=== PATIENT | male | born 1950 | race Caucasian/White ===

== ENCOUNTER → 2023-11-14 09:31 | Outpatient (REF) | payer OTHER, SELFPAY ==
[2023-11-14 10:43] LABS: % Basophils 0.7 % (0-2); % Eosinophils 1.7 % (0-6); % Immature Granulocytes 0.4 % (0-0.5); % Lymphocytes 30.4 % (20.5-51.1); % Monocytes 11.9 % (1.7-9.3); % Neutrophils 54.9 % (42.2-75.2); Absolute Eosinophils 0.1 10^3/uL (0-0.7); Absolute Lymphocytes 1.6 10^3/uL (1.2-3.4); Absolute Monocytes 0.6 10^3/uL (0.1-0.6); Hematocrit 46.7 % (39.0-52.0); Hemoglobin 16.1 g/dL (13.0-18.0); Mean Corp Hgb Conc. 34.5 g/dL (33.0-37.0); Mean Corpuscular Hgb 32.1 pg (27.0-31.0); Mean Platelet Volume 10.2 fL (7.4-10.4); Nucleated Red Blood Cells % 0 % (-); Platelet Count 169 10^3/uL (130-400); Red Blood Cell Count 5.02 10^6/uL (4.70-6.10); Red Cell Dist. Width 13.2 % (11.5-14.5); White Blood Cell Count 5.4 10^3/uL (4.8-10.8)
[2023-11-14 11:03] LABS: ALT (SGPT) 47 U/L (0-50); AST (SGOT) 45 U/L (17-59); Albumin 4.1 g/dl (3.5-5.0); Alkaline Phosphatase 89 U/L (38-126); Blood Urea Nitrogen 18 mg/dl (9-20); Calcium 8.9 mg/dl (8.4-10.2); Carbon Dioxide 29 mmol/L (22-30); Chloride 106 mmol/L (98-107); Glucose 96 mg/dl (70-99); HDL Cholesterol 55 mg/dl; LDL Cholesterol, Calculated 96 mg/dl; Potassium 4.8 mmol/L (3.5-5.1); Sodium 139 mmol/L (135-145); Total Bilirubin 0.9 mg/dl (0.2-1.3); Total Cholesterol 170 mg/dl (50-199); Total Protein 6.8 g/dl (6.3-8.2); Triglyceride 97 mg/dl (10-149); Very Low Density Lipoprotein 19 mg/dl (0-30); eGFR > 60.00
[2023-11-14 11:37] LABS: PSA, Total - Screen 1.02 ng/ml (0.0-4.0)
[2023-11-14 13:28] LABS: Urine Albumin Negative (Neg - Trace); Urine Bilirubin Negative (Negative); Urine Color Yellow; Urine Glucose Negative (Negative); Urine Ketone Trace (Negative); Urine Leukocyte Negative (Negative); Urine Nitrite Negative (Negative); Urine Occult Blood Negative (Negative); Urine Specific Gravity 1.025 (<1.030); Urine Urobilinogen Negative (Neg - 1+)
[2023-11-14 13:32] LABS: Urine Character Clear (Clear)
[2023-11-14 13:35] LABS: Glycohemoglobin (HgbA1c) 5.9 % (4.0-5.6)
== END ==
LOC: REG 09:31
PROVIDERS: ATTENDING PHYSICIAN Family Medicine
DX: Z12.5 Encounter for screening for malignant neoplasm of prostate (principal); E78.5 Hyperlipidemia, unspecified; R53.83 Other fatigue; I10 Essential (primary) hypertension; R73.03 Prediabetes
CPT/HCPCS: 36415; 80053; 80061; 81003; 83036; 85025; G0103

== ENCOUNTER 2023-11-22 13:14 | Emergency (ER) | payer OTHER, SELFPAY ==
[2023-11-22 13:19] VITALS: BP 178/93
[2023-11-22 13:41] LABS: % Basophils 0.7 % (0-2); % Eosinophils 1.2 % (0-6); % Monocytes 9.9 % (1.7-9.3); % Neutrophils 61.2 % (42.2-75.2); Absolute Eosinophils 0.1 10^3/uL (0-0.7); Absolute Lymphocytes 1.6 10^3/uL (1.2-3.4); Absolute Monocytes 0.6 10^3/uL (0.1-0.6); Absolute Neutrophils 3.6 10^3/uL (1.4-6.5); Hematocrit 48.2 % (39.0-52.0); Hemoglobin 16.8 g/dL (13.0-18.0); Mean Corp Hgb Conc. 34.9 g/dL (33.0-37.0); Mean Corpuscular Hgb 32.6 pg (27.0-31.0); Mean Corpuscular Volume 93.4 fL (80.0-94.0); Mean Platelet Volume 9.8 fL (7.4-10.4); Nucleated Red Blood Cells % 0 % (-); Platelet Count 201 10^3/uL (130-400); Red Blood Cell Count 5.16 10^6/uL (4.70-6.10); Red Cell Dist. Width 13.3 % (11.5-14.5); White Blood Cell Count 5.9 10^3/uL (4.8-10.8)
--- NOTE | 2023-11-22 13:49 | ED.GENMED ---
History of Present Illness
General
Chief Complaint: Headache
Source: patient
Exam Limitations: none
Time Seen by Provider: 11/22/23 13:49
Nursing documentation reviewed up to this point in time: agreed with
Travel History
Have you had any contact with someone who has COVID-19?: No
Do you have any symptoms of coronavirus? Fever > 100 degrees, chills, cough, shortness of breath, sore throat, loss of taste or smell, muscle aches, or headache?: No
History of Present Illness
History of Present Illness:
73-year-old male with history of HLD, GERD, anxiety/depression presents for headache. States 2 weeks ago he had a headache that lasted every day for a week, then it went away for a week. For the past 4 days the headache has returned, is
generalized, comes and goes and is associated with 'weird noises in my brain' at times. He saw his PCP Dr. Moran 3 days ago, mention the headaches but he states the doctor 'said nothing.' 2 days ago he called Dr. Moran back, he was not in the
office so I spoke with the nurse who got back to him and referred him to neurology. He has a neurology appoint with Dr. Vaughan next Saturday (one week).
Patient states he has tried Tylenol, ibuprofen, [facility] migraine, aspirin with no relief. He states his headache right now is generalized and is 3/10. He denies N/V. He has been walking steadily. He denies change in vision.
He went to urgent care today and had a negative workup but they suggested he come here and get a head CT.
No history of trauma
Past History
Past History
ED Past Medical History: GERD, HTN and Hypercholesterolemia
ED Past Surgical History: None
Social History
Tobacco: Non-smoker
Alcohol: Occasional
Living: alone
Review of Systems
Review of Systems
Allergies reviewed?: Yes
All Other Systems: ROS reviewed and negative except as documented in HPI and ROS
Constitutional: Denies fever
Respiratory: Denies trouble breathing
Cardiac: Denies chest pain
ABD/GI: Denies abdominal pain, nausea or vomiting
Musculoskeletal: Denies edema or neck pain
Skin: Reports no symptoms
Neurological: Reports headache; Denies dizzy, weakness or numbness
Phy Exam
Physical Exam
Physical Exam:
GENERAL: No acute distress. A&Ox3.
CONSTITUTIONAL: Afebrile.
EYES: PERRL, conjunctivae normal
ENMT: moist mucus membranes, Pharynx nl, TMs normal
RESPIRATORY: Regular respirations, nonlabored, lungs clear.
CARDIOVASCULAR: Regular rate and rhythm, no murmurs, no rubs.
GI: Soft, nontender, normal BS
MUSCULOSKELETAL: Moves with ease. Well perfused.
SKIN: Warm, dry, pink
PSYCH: Normal mood and affect. Well kept, interactive and appropriate
NEUROLOGIC: Awake, alert and oriented. Speech clear no focal neurological deficits. Cranial nerves II through XII intact. Finger-nose intact, ambulates well with steady gait.
Course
Orders/Labs/Results
Orders:
Orders
11/22/23 13:25
CMP [Comprehensive Metabolic Panel] Urgent
Complete Blood Count/With Diff Urgent
11/22/23 14:11
CT Head W/o Iv Contrast Urgent
Comment:
Reason For Exam: headaches
Abnormal Lab Results
11/22/23
13:25
MCH 32.6 H pg
(27.0-31.0)
Monocytes % 9.9 H %
(1.7-9.3)
11/22/23 13:25
11/22/23 13:25
Vital Signs
Initial and Last Documented VS:
Initial Vital Signs
Temp Pulse Resp BP Pulse Ox
98.0 F 87 18 178/93 96
11/22/23 13:19 11/22/23 13:19 11/22/23 13:19 11/22/23 13:19 11/22/23 13:19
Last Documented Vital Signs
Temp Pulse Resp BP Pulse Ox
98.0 F 77 16 160/96 97
11/22/23 13:19 11/22/23 15:16 11/22/23 15:16 11/22/23 15:16 11/22/23 15:16
MDM/Problems Addressed
Differential Diagnosis Includes:
tension headache, ICH, brain tumor
MDM/Problems Addressed:
73-year-old male with history of HLD, GERD, anxiety/depression presents for headache. States 2 weeks ago he had a headache that lasted every day for a week, then it went away for a week. For the past 4 days the headache has returned, is
generalized, comes and goes and is associated with 'weird noises in my brain' at times. He saw his PCP Dr. Moran 3 days ago, mention the headaches but he states the doctor 'said nothing.' 2 days ago he called Dr. Moran back, he was not in the
office so I spoke with the nurse who got back to him and referred him to neurology. He has a neurology appoint with Dr. Vaughan next Saturday (one week).
Patient states he has tried Tylenol, ibuprofen, [facility] migraine, aspirin with no relief. He states his headache right now is generalized and is 3/10. He denies N/V. He has been walking steadily. He denies change in vision.
He went to urgent care today and had a negative workup but they suggested he come here and get a head CT.
No history of trauma
11/22/2023 1421 PM
CBC normal
CMP normal
11/22/2023 1543 PM
Well-appearing 73-year-old gentleman, neuro exam is normal
Blood pressure little high here but patient states every time he goes to his doctor is '120 over something'
Head CT unremarkable.
Pt reassured.
He will follow up with Dr. Vaughan as scheduled.
*Critical Care Note
Total Time (30-74mins, 75-104mins- exclusive of procedures): Not Applicable
ED Attending Note
-
Portions of this chart may have been created with voice recognition software.� Occasional wrong word or��sound alike� substitutions may have occurred due to the inherent limitations of voice recognition software.
Discharge Plan
Departure
Patient Disposition: Home (Routine Discharge)
Date of Disposition: 11/22/23
Time of Disposition: 15:29
Patient with high blood pressure during this ER visit?: Yes
Condition: Good
Discharge Problem:
Generalized headaches, Frequent headaches
Instructions: Headache, Adult (DC), BLOOD PRESSURE
Prescriptions:
No Action
atorvastatin 40 MG tablet
40 mg PO QPM
citalopram 10 MG tablet
10 mg PO QPM
omeprazole magnesium [Prilosec OTC] 20 MG tablet,delayed release (DR/EC)
20 mg PO QPM
sennosides [senna] 1 TABLET tablet
2 tab PO BID 0RF
acetaminophen 325 MG tablet
650 mg PO Q6H 0RF
magnesium hydroxide 30 ML suspension
30 ml PO HS Qty: 1 0RF
Rx Instructions:
take nightly until BM
aspirin 325 MG tablet,delayed release (DR/EC)
325 mg PO DAILY 0RF
docusate sodium 100 MG capsule
100 mg PO BID 0RF
mupirocin 1 APPLIC ointment
1 applic intranasal BID Qty: 1 0RF
oxycodone 5 MG tablet
5 mg PO Q6HPRN PRN (Reason: moderate-severe pain) Qty: 45 0RF
Rx Instructions:
1 tab moderate pain or 2 if severe
ongoing
tka
meloxicam 15 MG tablet
15 mg PO DAILY Qty: 14 0RF
tizanidine 2 MG tablet
2 mg PO Q6H PRN (Reason: thigh/muscle pain) Qty: 20 0RF
Rx Instructions:
take 1 tab, if no relief after 1hour, may take additional tab
Referrals:
Viraj Moran MD [Family Provider] -
Activity Restrictions/Additional Instructions:
As we discussed, your blood work is normal, your head CAT scan shows nothing worrisome. Keep your appoint with Dr. Vaughan in one week.
Your blood pressure is a little high but likely not high enough to cause your headaches.
Follow up with Neurology Dr. Vaughan:
[address]
[place]
[id number]

Interventions
Interventions:
*Risk Screen - Suicide Last Done: 11/22/23 13:19
*General Assessment Last Done: 11/22/23 13:19
*Neglect/Abuse Screening Last Done: 11/22/23 13:19
*ED COVID-19 Vaccine History Last Done: 11/22/23 13:19
ED- Neurological Assessment Last Done: 11/22/23 13:41
[2023-11-22 14:00] LABS: ALT (SGPT) 40 U/L (0-50); AST (SGOT) 44 U/L (17-59); Albumin 4.5 g/dl (3.5-5.0); Alkaline Phosphatase 99 U/L (38-126); Blood Urea Nitrogen 16 mg/dl (9-20); Calcium 9.4 mg/dl (8.4-10.2); Carbon Dioxide 25 mmol/L (22-30); Chloride 106 mmol/L (98-107); Glucose 91 mg/dl (70-99); Potassium 4.3 mmol/L (3.5-5.1); Sodium 138 mmol/L (135-145); Total Bilirubin 0.7 mg/dl (0.2-1.3); Total Protein 7.7 g/dl (6.3-8.2); eGFR > 60.00
[2023-11-22 15:16] VITALS: BP 160/96
== END 2023-11-22 15:44 | disposition home or self-care (01) ==
LOC: EMR 13:14
PROVIDERS: EMERGENCY PHYSICIAN Emergency Medicine; FAMILY PHYSICIAN Family Medicine
DX: R51.9 Headache, unspecified (principal); K21.9 Gastro-esophageal reflux disease without esophagitis; F32.A Depression, unspecified; E78.00 Pure hypercholesterolemia, unspecified; F41.9 Anxiety disorder, unspecified; I10 Essential (primary) hypertension; Z79.82 Long term (current) use of aspirin
CPT/HCPCS: 99284; 70450; 80053; 85025

== ENCOUNTER → 2023-11-29 09:18 | Outpatient (REF) | payer OTHER, SELFPAY ==
[2023-11-29 10:24] LABS: Erythrocyte Sed Rate 7 mm/hour (0-20)
== END ==
LOC: REG 09:18
PROVIDERS: ATTENDING PHYSICIAN Specialist
DX: G43.019 Migraine without aura, intractable, without status migrainosus (principal); R51.9 Headache, unspecified
CPT/HCPCS: 36415; 85652; 86140

== ENCOUNTER 2024-09-17 06:00 | Emergency (ER) | payer OTHER, SELFPAY ==
[2024-09-17 06:12] VITALS: BP 178/101
--- NOTE | 2024-09-17 07:36 | ED.GENMED ---
History of Present Illness
General
Chief Complaint: Nose Bleed
Source: patient
Exam Limitations: none
Time Seen by Provider: 09/17/24 07:22
History of Present Illness
History of Present Illness:
See MDM
Past History
Past History
ED Past Medical History: GERD, HTN and Hypercholesterolemia
ED Past Surgical History: None
Social History
Tobacco: Non-smoker
Alcohol: Occasional
Living: alone
Phy Exam
Physical Exam
Physical Exam:
See MDM
Course
Vital Signs
Initial and Last Documented VS:
Initial Vital Signs
Pulse Resp BP Pulse Ox
73 18 178/101 98
09/17/24 06:12 09/17/24 06:12 09/17/24 06:12 09/17/24 06:12
Last Documented Vital Signs
Pulse Resp BP Pulse Ox
73 18 178/101 98
09/17/24 06:12 09/17/24 06:12 09/17/24 06:12 09/17/24 06:12
Procedures
Nosebleed
Drug treatment: none
Treatment: Merocel packing
Post treatment bleeding: none- good control
MDM/Problems Addressed
Differential Diagnosis Includes:
HPI and MDM Narrative:
74-year-old male presenting for left sided nosebleeding. Patient acknowledges that he was picking his nose and it started to bleed. He denies being on blood thinners. He has had issues on the right side before but never the left. On exam, there
is no significant bleeding noted. When the nasal passage was probed, I did expose an excoriation on the which started to hemorrhage. Muricel packing was applied immediately which resolved bleeding
Physical exam
General: Well appearing and non-toxic
HEENT: protecting airway. Excoriation to left anterior nasal septum with active bleeding
Neck: appears supple
CV: No evidence of cyanosis
Resp: No accessory muscle use
Abd: Non-distended
Extremities: No deformities
Neuro: alert
Psych: Normal affect
Skin: Intact
Problems Addressed including Acute and Chronic Conditions affecting care:
1. Anterior epistaxis
Acuity: acute
Prognosis: stable
Details: Given the active bleeding, patient not a great candidate for silver nitrate. Muricel packing was applied immediately which significantly improved
Updates
The Muricel stop the bleeding. Patient is not excited about going home with packing. I removed the packing and the bleeding had resolved. Silver nitrate placed over the excoriated area and no bleeding occurred.
Differential Diagnosis (but not limited to): Epistaxis, excoriation
Testing considered: Hemoglobin testing
Drug therapy (if applicable): OTC meds, please see d/c instruction regarding Rx drugs
Amount and/or Complexity of Data Reviewed
Clinical info obtained from: Patient
External data reviewed: N/A
Labs I independently reviewed (but not limited to): N/A
Radiology: N/A
Pulse Ox: not hypoxic
EKG independently reviewed: N/A
Wire Walker: N/A
Critical Care: N/A
Risk of Complication:
Social Determinants of health: Good social support
Discussed with other providers: N/A
Escalation of Care includes Admit/Obs: After being observed in the Emergency Department, pt stable for discharge.
Occasional wrong word or 'sound a like' substitutions may have occurred due to the inherent limitations of voice recognition software. Read the chart carefully and recognize, using context, where substitutions have occurred.
*Critical Care Note
Total Time (30-74mins, 75-104mins- exclusive of procedures): Not Applicable
ED Attending Note
-
Portions of this chart may have been created with voice recognition software.� Occasional wrong word or��sound alike� substitutions may have occurred due to the inherent limitations of voice recognition software.
Discharge Plan
Departure
Patient Disposition: Home (Routine Discharge)
Date of Disposition: 09/17/24
Time of Disposition: 08:24
Patient with high blood pressure during this ER visit?: Yes
Discharge Problem:
Anterior epistaxis
Instructions: Nosebleeds (DC)
Prescriptions:
No Action
atorvastatin 40 MG tablet
40 mg PO QPM
citalopram 10 MG tablet
10 mg PO QPM
omeprazole magnesium [Prilosec OTC] 20 MG tablet,delayed release (DR/EC)
20 mg PO QPM
sennosides [senna] 1 TABLET tablet
2 tab PO BID 0RF
acetaminophen 325 MG tablet
650 mg PO Q6H 0RF
magnesium hydroxide 30 ML suspension
30 ml PO HS Qty: 1 0RF
Rx Instructions:
take nightly until BM
aspirin 325 MG tablet,delayed release (DR/EC)
325 mg PO DAILY 0RF
docusate sodium 100 MG capsule
100 mg PO BID 0RF
mupirocin 1 APPLIC ointment
1 applic intranasal BID Qty: 1 0RF
oxycodone 5 MG tablet
5 mg PO Q6HPRN PRN (Reason: moderate-severe pain) Qty: 45 0RF
Rx Instructions:
1 tab moderate pain or 2 if severe
ongoing
tka
meloxicam 15 MG tablet
15 mg PO DAILY Qty: 14 0RF
tizanidine 2 MG tablet
2 mg PO Q6H PRN (Reason: thigh/muscle pain) Qty: 20 0RF
Rx Instructions:
take 1 tab, if no relief after 1hour, may take additional tab
Referrals:
Khalif Holly MD [Family Provider] -
Sd Giron MD [Active] -
Activity Restrictions/Additional Instructions:
Please return for any worsening symptoms.
You may return at any time if you have further concerns.
Please follow up with your doctor at the first available appointment, preferably this week.
If symptoms persist, please make an appointment with the ear, nose and throat (ENT) doctor.
Thank you for choosing [facility].
Interventions
Interventions:
*General Assessment Last Done: 09/17/24 06:16
*Neglect/Abuse Screening Last Done: 09/17/24 06:16
ED- Fall Risk Assessment Last Done: 09/17/24 08:04
*ED COVID-19 Vaccine History Last Done: 09/17/24 08:02
ED-EENT Assessment Last Done: 09/17/24 08:02
Discharge Date and Time
Print Language: BULGARIAN
[2024-09-17 08:02] VITALS: BMI 30.3
[2024-09-17 08:35] VITALS: BP 175/90
== END 2024-09-17 08:37 | disposition home or self-care (01) ==
LOC: EMR 06:00
PROVIDERS: EMERGENCY PHYSICIAN Student in an Organized Health Care Education/Training Program; FAMILY PHYSICIAN Family Medicine
DX: R04.0 Epistaxis (principal); K21.9 Gastro-esophageal reflux disease without esophagitis; I10 Essential (primary) hypertension; E78.00 Pure hypercholesterolemia, unspecified
CPT/HCPCS: 99282; 30901

== ENCOUNTER 2024-09-21 06:33 | Emergency (ER) | payer OTHER, SELFPAY ==
[2024-09-21 06:36] VITALS: BP 138/86
--- NOTE | 2024-09-21 07:20 | ED.GENMED ---
History of Present Illness
General
Chief Complaint: Nose Bleed
Time Seen by Provider: 09/21/24 07:20
History of Present Illness
History of Present Illness:
TIME OF INITIAL ENCOUNTER: 7:25 AM
HPI: Patient presents due to nosebleed. The patient briefly had Merocel packing but declined to go home with packing. At that time, packing was removed and silver nitrate cauterization was performed. He is not on any antiplatelets or
anticoagulation. This morning, he did blow his nose when he was at the gym as he was unable to breathe out of the left nostril. Bleeding then recurred. It was not quite as bad today as it was the other day.
EXAM:
GENERAL: Well appearing in no distress
HEENT: Some dried blood noted at the left nostril, after TXA used, there is a likely site of recent anterior bleeding noted at the nasal septum recent
NEUROLOGIC: Excellent strength all extremities, no coordination deficits
PSYCHIATRIC: Appropriate mental status, normal insight and judgement
EXTREMITIES: Nontender, no edema, moves all extremities equally
SKIN: No rash, no lesions
NUMBER AND COMPLEXITY OF PROBLEMS ADDRESSED AT THE ENCOUNTER
� Chronic conditions affecting care: GERD, hyperlipidemia, anxiety/depression
� Acute Exacerbation and/or Progression of Chronic Illness: This is an acute problem
� Differential Diagnosis includes: Anterior epistaxis, posterior epistaxis
AMOUNT AND/OR COMPLEXITY OF DATA TO BE REVIEWED AND ANALYZED
� I performed an independent evaluation of and my interpretation is:
EKG:
CT:
X-rays:
Laboratory Studies:
Other:
� Review of other/old records: I reviewed the notes from 09/17/2024; blood work from earlier this year showed normal hemoglobin and normal platelets
� Clinical information was obtained by an independent historian: None needed
� Prescriptions/Medications Considered but not given: I offered and considered nasal packing patient declines.
� Further testing considered but not performed:
RISK OF COMPLICATIONS AND/OR MORBIDITY OR MORTALITY OF PATIENT MANAGEMENT
� Social determinants of health affecting care: Lives at home
� Discussion with other providers:
� Escalation of care including admission/observation vs risk of discharge considered: I had patient blow his nose and large amount of clots came out of the left side. I then placed at TXA soaked cottonball for about 30 minutes.
I removed this cottonball and then used silver nitrate chemical cauterization. He was then observed for a period of time and has been no further bleeding.
ANY OTHER UPDATES:
9:20 AM: No further bleeding.
Past History
Past History
ED Past Medical History: GERD, HTN and Hypercholesterolemia
ED Past Surgical History: None
Social History
Tobacco: Non-smoker
Alcohol: Occasional
Living: alone
Phy Exam
Physical Exam
Physical Exam:
See HPI
Course
Orders/Labs/Results
Orders:
Orders
09/21/24 07:30
Phenylephrine 1% Extra Strengt [Maik-Synephrine 1% Nasal [place]] See Dose Instructions NASAL Q4HPRN ONE
09/21/24 07:46
Tranexamic Acid 1,000 mg TOPICAL NOW STA
Vital Signs
Initial and Last Documented VS:
Initial Vital Signs
Pulse Resp BP Pulse Ox
78 28 138/86 95
09/21/24 06:36 09/21/24 06:36 09/21/24 06:36 09/21/24 06:36
Last Documented Vital Signs
Pulse Resp BP Pulse Ox
78 28 138/86 95
09/21/24 06:36 09/21/24 06:36 09/21/24 06:36 09/21/24 06:36
Procedures
Nosebleed
Drug treatment: Tranexamic Acid
Treatment: local pressure applied and Silver nitrate cautery
Post treatment bleeding: none- good control
*Critical Care Note
Total Time (30-74mins, 75-104mins- exclusive of procedures): Not Applicable
ED Attending Note
-
Portions of this chart may have been created with voice recognition software.� Occasional wrong word or��sound alike� substitutions may have occurred due to the inherent limitations of voice recognition software.
Discharge Plan
Departure
Patient Disposition: Home (Routine Discharge)
Date of Disposition: 09/21/24
Time of Disposition: 09:21
Patient with high blood pressure during this ER visit?: Yes
Discharge Problem:
Acute anterior epistaxis
Instructions: Nosebleeds (DC), BLOOD PRESSURE
Prescriptions:
No Action
atorvastatin 40 MG tablet
40 mg PO QPM
citalopram 10 MG tablet
10 mg PO QPM
omeprazole magnesium [Prilosec OTC] 20 MG tablet,delayed release (DR/EC)
20 mg PO QPM
sennosides [senna] 1 TABLET tablet
2 tab PO BID 0RF
acetaminophen 325 MG tablet
650 mg PO Q6H 0RF
magnesium hydroxide 30 ML suspension
30 ml PO HS Qty: 1 0RF
Rx Instructions:
take nightly until BM
docusate sodium 100 MG capsule
100 mg PO BID 0RF
mupirocin 1 APPLIC ointment
1 applic intranasal BID Qty: 1 0RF
oxycodone 5 MG tablet
5 mg PO Q6HPRN PRN (Reason: moderate-severe pain) Qty: 45 0RF
Rx Instructions:
1 tab moderate pain or 2 if severe
ongoing
tka
meloxicam 15 MG tablet
15 mg PO DAILY Qty: 14 0RF
tizanidine 2 MG tablet
2 mg PO Q6H PRN (Reason: thigh/muscle pain) Qty: 20 0RF
Rx Instructions:
take 1 tab, if no relief after 1hour, may take additional tab
Referrals:
Tomy Holly MD [Family Provider] -
Carmita Perry MD [Active] - Follow up in 2-3 days
Activity Restrictions/Additional Instructions:
I initially had you blow your nose and then placed a TXA soaked cottonball. I then cauterized unlikely site of bleeding from the anterior nasal septum. I have given you the contact information for local ENT doctor to follow-up with (Dr. Perry).
Return here if worse or other concerns.
Interventions
Interventions:
*Risk Screen - Suicide Last Done: 09/21/24 06:36
*General Assessment Last Done: 09/21/24 07:12
*Neglect/Abuse Screening Last Done: 09/21/24 06:36
ED- Fall Risk Assessment Last Done: 09/21/24 07:12
*ED COVID-19 Vaccine History Last Done: 09/21/24 07:12
ED-EENT Assessment Last Done: 09/21/24 07:12
Discharge Date and Time
Print Language: IRISH
[2024-09-21 09:35] VITALS: BP 135/85
== END 2024-09-21 09:36 | disposition home or self-care (01) ==
LOC: EMR 06:33
PROVIDERS: EMERGENCY PHYSICIAN Emergency Medicine; FAMILY PHYSICIAN Family Medicine
DX: R04.0 Epistaxis (principal); K21.9 Gastro-esophageal reflux disease without esophagitis; E78.00 Pure hypercholesterolemia, unspecified; I10 Essential (primary) hypertension
CPT/HCPCS: 99282; 30901